=== PATIENT | male | born 1990 | race Caucasian/White ===

== ENCOUNTER → 2016-12-16 | Outpatient (CLI) | payer BC | END | disposition home or self-care (01) | LOC: US 14:57 | DX: N63 Unspecified lump in breast (principal) ==

== ENCOUNTER 2020-11-12 10:45 | Emergency (ER) | payer SELFPAY ==
[~2020-11-12] VITALS: Ht 190.5 cm; Wt 81.6 kg
== END 2020-11-12 13:31 | disposition home or self-care (01) ==
LOC: ED 10:45
DX: S61.012A Laceration without foreign body of left thumb without damage to nail, initial encounter (principal); W45.8XXA Other foreign body or object entering through skin, initial encounter; Y93.89 Activity, other specified; Y92.89 Other specified places as the place of occurrence of the external cause; Y99.8 Other external cause status

== ENCOUNTER 2021-12-18 19:38 | Emergency (ER) | payer SELFPAY | END 2021-12-18 21:58 | disposition home or self-care (01) | LOC: ED 19:38 | DX: S62.101A Fracture of unspecified carpal bone, right wrist, initial encounter for closed fracture (principal); X58.XXXA Exposure to other specified factors, initial encounter; Y93.89 Activity, other specified; Y92.89 Other specified places as the place of occurrence of the external cause; Y99.8 Other external cause status ==

== ENCOUNTER → 2022-04-09 | Outpatient (CLI) | payer OTHER ==
[2022-04-09 16:22] LABS: HEMATOCRIT 44.5 % (42.0-52.0); MEAN CELL VOLUME 87.1 fl (80.0-94.0); MEAN CORPUSCULAR HGB 29.9 pg (27.0-31.0); MEAN CORPUSCULAR HGB CONC 34.4 g/dl (33.0-37.0); MEAN PLATELET VOLUME 10.9 fl (9.6-12.3); RED BLOOD COUNT 5.11 10*6/uL (4.50-5.90); WHITE BLOOD COUNT 6.6 10*3/uL (4.8-10.8)
[2022-04-09 16:49] LABS: ALKALINE PHOSPHATASE 53 U/L (45-117); BUN 16 mg/dl (7-24); CHLORIDE 110 mmol/L (98-107); CHOLESTEROL 153 mg/dL (<200); LDL CHOLESTEROL 64 mg/dL (9-159); POTASSIUM 4.3 mmol/L (3.5-5.1); SGOT/AST 16 IU/L (3-35); SGPT/ALT 25 U/L (12-78); SODIUM 140 mmol/L (136-145); TRIGLYCERIDES 161 mg/dl (<150)
[2022-04-09 16:55] LABS: FREE T4 0.85 ng/dl (0.76-1.46)
[2022-04-09 17:02] LABS: VITAMIN D, 25-HYDROXY 31.1 ng/mL (30-100)
== END | disposition home or self-care (01) ==
LOC: LAB 16:01
PROVIDERS: ATTEND Family Medicine
DX: Z00.00 Encounter for general adult medical examination without abnormal findings (principal); E55.9 Vitamin D deficiency, unspecified; R53.83 Other fatigue

== ENCOUNTER → 2022-10-29 | Outpatient (CLI) | payer OTHER ==
[2022-10-29 17:17] LABS: HEMATOCRIT 45.4 % (42.0-52.0); MEAN CELL VOLUME 85.8 fl (80.0-94.0); MEAN CORPUSCULAR HGB 29.9 pg (27.0-31.0); MEAN CORPUSCULAR HGB CONC 34.8 g/dl (33.0-37.0); RED BLOOD COUNT 5.29 10*6/uL (4.50-5.90); WHITE BLOOD COUNT 7.8 10*3/uL (4.8-10.8)
[2022-10-29 17:30] LABS: ALKALINE PHOSPHATASE 50 U/L (46-116); BUN 10 mg/dl (9-23); CHLORIDE 105 mmol/L (98-107); CHOLESTEROL 168 mg/dL (<200); LDL CHOLESTEROL 84 mg/dL (9-159); POTASSIUM 4.2 mmol/L (3.4-5.1); SGPT/ALT 15 U/L (10-49); TOTAL PROTEIN 6.9 gm/dL (6.0-8.0); TRIGLYCERIDES 124 mg/dl (<150)
[2022-11-01 02:06] LABS: ALTERNARIA ALTERNATA, IGE 2.89 kU/L (Class III); AMERICAN ELM, IGE 3.34 kU/L (Class III); ASPERGILLUS FUMIGATU, IGE <0.10 kU/L (Class 0); BERMUDA GRASS, IGE 1.76 kU/L (Class III); BIRCH, COMMON SILVER IGE 1.23 kU/L (Class II); CLADOSPORIUM HERBARU, IGE 0.17 kU/L (Class 0/I); D PTERONYSSINUS 0.19 kU/L (Class 0/I); DOG DANDER, IGE 0.18 kU/L (Class 0/I); MAPLE LEAF SYCAMORE, IGE 1.52 kU/L (Class III); MAPLE/BOX ELDER, IGE 1.01 kU/L (Class II); MOUSE URINE IGE <0.10 kU/L (Class 0); PENICILLIUM CHRYSOGENUM, IGE <0.10 kU/L (Class 0); ROUGH PIGWEED, IGE 0.87 kU/L (Class II); SHEEP SORREL (DOCK), IGE 0.72 kU/L (Class II); SHORT RAGWEED, IGE 1.41 kU/L (Class III); TIMOTHY, IGE 8.62 kU/L (Class IV); WALNUT TREE, IGE 3.38 kU/L (Class III); WHITE ASH, IGE 1.73 kU/L (Class III); WHITE MULBERRY, IGE 0.48 kU/L (Class I); WHITE OAK, IGE 0.99 kU/L (Class II)
[2022-11-04 09:07] LABS: CODFISH, IGE <0.10 kU/L (Class 0); EGG WHITE, IGE 1.01 kU/L (Class II); MILK (COW), IGE 3.56 kU/L (Class III); SOYBEAN, IGE 1.23 kU/L (Class II); WHEAT, IGE 1.95 kU/L (Class III)
== END | disposition home or self-care (01) ==
LOC: LAB 16:44
PROVIDERS: ATTEND Family Medicine
DX: Z00.00 Encounter for general adult medical examination without abnormal findings (principal); D64.9 Anemia, unspecified; L50.9 Urticaria, unspecified; R53.83 Other fatigue

== ENCOUNTER 2024-12-25 09:09 | Emergency (ER) | payer BC ==
[~2024-12-25] VITALS: Wt 84.8 kg
== END 2024-12-25 09:50 | disposition home or self-care (01) ==
LOC: ED 09:09
DX: L02.01 Cutaneous abscess of face (principal)

== ENCOUNTER → 2024-12-25 | Outpatient (CLI) | payer BC ==
[2024-12-25 09:17] LABS: HEMATOCRIT 42.3 % (42.0-52.0); MEAN CELL VOLUME 87.8 fl (80.0-94.0); MEAN CORPUSCULAR HGB 29.3 pg (27.0-31.0); MEAN CORPUSCULAR HGB CONC 33.3 g/dl (33.0-37.0); MEAN PLATELET VOLUME 11.5 fl (9.6-12.3); RED BLOOD COUNT 4.82 10*6/uL (4.50-5.90); RED CELL DISTRI WIDTH 12.2 % (0-14.5); WHITE BLOOD COUNT 9.4 10*3/uL (4.8-10.8)
[2024-12-25 09:48] LABS: ALKALINE PHOSPHATASE 64 U/L (46-116); BUN 14 mg/dl (9-23); CHLORIDE 103 mmol/L (98-107); CHOLESTEROL 160 mg/dL (<200); LDL CHOLESTEROL 93 mg/dL (9-159); POTASSIUM 4.1 mmol/L (3.4-5.1); SGPT/ALT 19 U/L (5-49); TOTAL PROTEIN 7.1 gm/dL (6.0-8.0); TRIGLYCERIDES 61 mg/dl (<150)
== END | disposition home or self-care (01) ==
LOC: LAB 08:46
PROVIDERS: ATTEND Family Medicine
DX: E78.00 Pure hypercholesterolemia, unspecified (principal); H66.91 Otitis media, unspecified, right ear; R53.83 Other fatigue